=== PATIENT | female | born 1965 | race Hispanic/Latino ===

== ENCOUNTER 2020-11-08 09:00 | Inpatient (IN) | payer BC ==
[~2020-11-08] VITALS: Ht 160 cm; Wt 71.6 kg
[2020-11-08 12:26] LABS: BASOPHILS % (AUTO) 0.9 % (0.0-5.0); EOSINOPHILS % (AUTO) 2.8 % (0.0-8.0); HEMATOCRIT 42.3 % (36-48); LYMPHOCYTES % (AUTO) 40.4 % (21.0-51.0); MEAN CORPUSCULAR HEMOGLOBIN 31.8 pg (27.0-33.0); MEAN CORPUSCULAR HGB CONC 33.3 g/dL (32.0-36.0); MEAN CORPUSCULAR VOLUME 95.3 fL (79-99); MONOCYTES % (AUTO) 7.1 % (3.0-13.0); NEUTROPHILS % (AUTO) 48.4 % (40.0-77.0); PLATELET COUNT (AUTO) 269 K/uL (130-400); RED BLOOD CELL COUNT(AUTO) 4.44 MIL/uL (4.00-5.50); WHITE BLOOD COUNT (AUTO) 5.7 K/uL (4.8-10.8)
[2020-11-08 12:37] LABS: APPEARANCE,URINE Clear (CLEAR); BILIRUBIN,URINE Negative (NEGATIVE); COLOR,URINE Yellow (YELLOW); GLUCOSE, URINE (UA) Negative (NEGATIVE); KETONES,URINE Negative (NEGATIVE); LEUKOCYTE ESTERASE ,URINE Negative (NEGATIVE); NITRATE,URINE Negative (NEGATIVE); OCCULT BLOOD,URINE Negative (NEGATIVE); PROTEIN,URINE Negative (NEGATIVE); UROBILINOGEN,URINE 0.2 mg/dL (0.2-1.0)
[2020-11-08 12:44] LABS: INR 0.92 (0.85-1.15); PROTHROMBIN TIME 9.9 SEC (9.6-11.6)
[2020-11-08 12:50] LABS: CREATININE 0.7 mg/dL (0.5-1.5); POTASSIUM 4.7 mmol/L (3.5-5.1)
[2020-11-12 11:10] VITALS: BP 140/76
[2020-11-12] MEDS ORDERED: IBUP-2071 PO (11:40)
[2020-11-12] MEDS ORDERED: SERT50TA PO (11:40)
[2020-11-12] MEDS ORDERED: LORA10TA7 PO (11:40)
[2020-11-15] VITALS (25 sets, daily range): BP systolic 86–147; BP diastolic 50–85
[2020-11-15] MEDS: CEFAZOLIN SODIUM 1 GM VIAL IVP SCH ×3 (06:00→20:36)
[2020-11-15] MEDS ORDERED: LACTATED RINGERS 1000ML 1,000 ML IV ONE (08:00)
[2020-11-15] MEDS ORDERED: ACETAMINOPHEN EXTRA STRENGTH 500 MG TABLET ONE (09:13)
[2020-11-15] MEDS ORDERED: CELECOXIB 200 MG CAP ONE (09:13)
[2020-11-15] MEDS ORDERED: KETOROLAC TROMETHAMINE 15MG/ML ONE (09:13)
[2020-11-15] MEDS ORDERED: CEFAZOLIN SODIUM 1 GM VIAL ONE (09:49)
[2020-11-15] MEDS ORDERED: PROPOFOL 10 MG/ML 20ML VIAL IV ONE (09:55)
[2020-11-15] MEDS ORDERED: LIDOCAINE PF 2% 5ML ABBOJECT ONE (09:55)
[2020-11-15] MEDS ORDERED: MIDAZOLAM HCL 1 MG/ML 2ML VIAL ONE (09:55)
[2020-11-15] MEDS ORDERED: FENTANYL CITRATE PF 50 MCG/1 ML 2ML VIAL ONE ×2 (09:55→11:19)
[2020-11-15] MEDS ORDERED: ONDANSETRON HCL 4 MG/2 ML VIAL ONE ×2 (09:55→13:55)
[2020-11-15] MEDS ORDERED: DEXAMETHASONE SOD PHOSPHATE 10MG/ML 1ML VIAL ONE (09:55)
[2020-11-15] MEDS ORDERED: ROCURONIUM 10MG/1ML SYR 10 MG/ML ML ONE ×2 (09:56→10:55)
[2020-11-15] MEDS ORDERED: TRANEXAMIC ACID 1000MG/10ML ONE ×2 (09:56→13:08)
[2020-11-15] MEDS ORDERED: ROPIVACAINE 0.5% 5MG/ML 30ML IJ ONE (09:59)
[2020-11-15] MEDS ORDERED: EPHEDRINE SULFATE 50 MG/ML AMPULE ONE (10:32)
[2020-11-15] MEDS ORDERED: FERROUS FUMARATE 324 MG TABLET PO PRN (12:45)
[2020-11-15] MEDS ORDERED: ONDANSETRON HCL 4 MG/2 ML VIAL IVP PRN (12:45)
[2020-11-15] MEDS ORDERED: POTASSIUM CHLORIDE 10% ELIXIR 20 MEQ/15 ML UDCUP PO PRN (12:45)
[2020-11-15] MEDS ORDERED: OXYCODONE HCL 5 MG TAB PO PRN (12:45)
[2020-11-15] MEDS ORDERED: TEMAZEPAM 15 MG CAPSULE PO PRN (12:45)
[2020-11-15] MEDS ORDERED: POTASSIUM CHLORIDE 20MEQ/100ML 100 ML IV PRN (12:45)
[2020-11-15] MEDS ORDERED: ACETAMINOPHEN EXTRA STRENGTH 500 MG TABLET PO SCH (12:45)
[2020-11-15] MEDS ORDERED: TRAMADOL HCL 50 MG TABLET PO PRN (12:45)
[2020-11-15] MEDS: SODIUM CHLORIDE 0.9% 1000ML 1,000 ML IV SCH ×2 (12:45→23:03)
[2020-11-15] MEDS ORDERED: CALCIUM CARBONATE 500 MG TABLET PO PRN (12:45)
[2020-11-15] MEDS ORDERED: POTASSIUM CHLORIDE 20 MEQ ERTAB PO PRN (12:45)
[2020-11-15] MEDS ORDERED: DiphenhydrAMINE HCL 50 MG/ML VIAL IVP PRN (12:45)
[2020-11-15] MEDS ORDERED: LIDOCAINE HCL-MPF 1% 2ML VIAL IV PRN (12:45)
[2020-11-15] MEDS ORDERED: MEPERIDINE-PF 25 MG/ML SYG ONE ×2 (13:27→13:36)
[2020-11-15] MEDS: OXYCODONE HCL 5 MG TAB PO PRN ×2 (17:27→23:03)
[2020-11-15] MEDS ORDERED: CEFAZOLIN SODIUM 1 GM VIAL IVP SCH (17:45)
[2020-11-15] MEDS: FAMOTIDINE 20MG TAB 20 MG TAB PO SCH (20:36)
[2020-11-15] MEDS: PREGABALIN 25 MG CAP PO SCH (20:36)
[2020-11-15] MEDS: ASPIRIN 81MG TAB.CHEW PO SCH (20:36)
[2020-11-15] MEDS: CELECOXIB 200 MG CAP PO SCH (20:37)
[2020-11-15] MEDS: KETOROLAC TROMETHAMINE 15MG/ML IV PRN (21:34)
[2020-11-15] MEDS: ACETAMINOPHEN EXTRA STRENGTH 500 MG TABLET PO SCH (22:29)
[2020-11-15] MEDS: HYDROMORPHONE HCL 2 MG/ML VIAL IVP PRN ×2 (22:30→23:47)
[2020-11-16] MEDS: HYDROMORPHONE HCL 2 MG/ML VIAL IVP PRN ×4 (00:48→04:56)
[2020-11-16] MEDS ORDERED: NALOXONE HCL 0.4 MG/1 ML ML IVP PRN (01:45)
[2020-11-16] MEDS ORDERED: HYDROMORPHONE PCA 10 MG/50 ML 50 ML IV PRN (01:45)
[2020-11-16] MEDS: CEFAZOLIN SODIUM 1 GM VIAL IVP SCH (03:30)
[2020-11-16 04:03] VITALS: BP 116/68
[2020-11-16 05:11] LABS: MEAN CORPUSCULAR HEMOGLOBIN 32.2 pg (27.0-33.0); MEAN CORPUSCULAR HGB CONC 33.1 g/dL (32.0-36.0); MEAN CORPUSCULAR VOLUME 97.3 fL (79-99); RED BLOOD CELL COUNT(AUTO) 3.29 MIL/uL (4.00-5.50); RED CELL DISTRIBUTION WIDTH 12.2 % (11.0-15.5); WHITE BLOOD COUNT (AUTO) 10.2 K/uL (4.8-10.8)
[2020-11-16] MEDS: ACETAMINOPHEN EXTRA STRENGTH 500 MG TABLET PO SCH ×3 (05:38→19:38)
[2020-11-16 05:44] LABS: CREATININE 0.7 mg/dL (0.5-1.5); POTASSIUM 3.9 mmol/L (3.5-5.1)
[2020-11-16] MEDS: SODIUM CHLORIDE 0.9% 1000ML 1,000 ML IV SCH (08:09)
[2020-11-16] MEDS: PREGABALIN 25 MG CAP PO SCH ×2 (08:14→19:38)
[2020-11-16] MEDS: FAMOTIDINE 20MG TAB 20 MG TAB PO SCH ×2 (08:14→19:38)
[2020-11-16] MEDS: CELECOXIB 200 MG CAP PO SCH ×2 (08:14→19:38)
[2020-11-16] MEDS: ASPIRIN 81MG TAB.CHEW PO SCH ×2 (08:14→19:38)
[2020-11-16] MEDS: SERTRALINE HCL 50 MG TABLET PO SCH (08:14)
[2020-11-16] MEDS: POLYETHYLENE GLYCOL 3350 17 GM POWD.PACK PO SCH (08:15)
[2020-11-16] MEDS: OXYCODONE HCL 5 MG TAB PO PRN ×4 (08:15→21:49)
[2020-11-16 08:19] VITALS: BP 116/58
[2020-11-16] MEDS ORDERED: LORATADINE 10 MG TABLET PO PRN (09:00)
[2020-11-16 11:36] VITALS: BP 107/65
[2020-11-16] MEDS: KETOROLAC TROMETHAMINE 15MG/ML IV PRN (13:30)
[2020-11-16 16:23] VITALS: BP 113/58
[2020-11-16 19:55] VITALS: BP 103/52
[2020-11-16] MEDS: HYDROMORPHONE 1 MG/1 ML AMP IVP PRN ×4 (20:08→23:33)
[2020-11-16 23:15] VITALS: BP 110/55
[2020-11-17] MEDS: HYDROMORPHONE 1 MG/1 ML AMP IVP PRN ×5 (01:42→05:57)
[2020-11-17] MEDS: OXYCODONE HCL 5 MG TAB PO PRN ×4 (02:06→15:25)
[2020-11-17 04:28] VITALS: BP 106/55
[2020-11-17] MEDS: ACETAMINOPHEN EXTRA STRENGTH 500 MG TABLET PO SCH ×2 (04:54→15:27)
[2020-11-17 09:07] VITALS: BP 116/69
[2020-11-17] MEDS: POLYETHYLENE GLYCOL 3350 17 GM POWD.PACK PO SCH (09:27)
[2020-11-17] MEDS: ASPIRIN 81MG TAB.CHEW PO SCH (09:28)
[2020-11-17] MEDS: SERTRALINE HCL 50 MG TABLET PO SCH (09:28)
[2020-11-17] MEDS: PREGABALIN 25 MG CAP PO SCH (09:28)
[2020-11-17] MEDS: CELECOXIB 200 MG CAP PO SCH (09:28)
[2020-11-17] MEDS: FAMOTIDINE 20MG TAB 20 MG TAB PO SCH (09:28)
[2020-11-17] MEDS ORDERED: BISACODYL 10 MG SUPP.RECT RC PRN (09:30)
[2020-11-17 11:19] VITALS: BP 140/66
[2020-11-17] MEDS ORDERED: HYDR-4457 PO (14:45)
[2020-11-17] MEDS ORDERED: ASPI-1005 PO (14:45)
[2020-11-17 16:15] VITALS: BP 133/67
[2020-11-18] MEDS ORDERED: BISACODYL 10 MG SUPP.RECT RC PRN (12:45)
== END 2020-11-17 18:45 | DRG 470 ==
LOC: EDSTATUS 09:00 → DAHIP 11-15 07:10 → 3AH 11-15 14:10
PROVIDERS: ADMIT Orthopaedic Surgery; ATTEND Orthopaedic Surgery
PROC: 0SRC0J9 Replacement of Right Knee Joint with Synthetic Substitute, Cemented, Open Approach (ICD-10-PCS; principal; 2020-11-15 10:00)
DX: M17.11 Unilateral primary osteoarthritis, right knee (principal); Z20.828 Contact with and (suspected) exposure to other viral communicable diseases; G89.29 Other chronic pain; M23.8X1 Other internal derangements of right knee; Z90.710 Acquired absence of both cervix and uterus
CPT/HCPCS: 36415; 80048; 81003; 85025; 85027; 85610; 87641; 97039; G0378; J0690; J1100; J1170; J1885; J2001; J2175; J2250; J2405; J2704; J2795; J3010; J3490; J7120; U0003

== ENCOUNTER → 2023-03-06 | Outpatient (CLI) | payer BC ==
[~2023-03-06] MED LIST: ASPI-1005 PO; HYDR-4457 PO; LORA10TA7 PO; SERT50TA PO
== END | disposition home or self-care (01) ==
LOC: SHCH 14:06
PROVIDERS: ATTEND Internal Medicine Cardiovascular Disease
DX: I87.2 Venous insufficiency (chronic) (peripheral) (principal)
CPT/HCPCS: 87071; 87076; 87205; 89051; 89060; 93970

== ENCOUNTER → 2023-04-12 | Outpatient (CLI) | payer BC ==
[2023-04-12 20:14] LABS: APPEARANCE BODY FLUID CLOUDY (CLEAR); COLOR,BODY FLUID ORANGE (LT YELLOW); SPECIMENTYPE,BODY FLUID SYNOVIAL
[2023-04-12 20:15] LABS: BODY FLUID RBC 4305 /cu. mm.; BODY FLUID WBC 78 /cu. mm.; TOTAL VOLUME,BODY FLUID 30 mL
[2023-04-12 20:21] LABS: BF LYMPHOCYTE 4 %; BF MONOCYTE 1 %
[2023-04-13 02:56] LABS: CRYSTALS, SYNOVIAL FLUID None Seen
== END | disposition home or self-care (01) ==
LOC: SHCH 10:00
PROVIDERS: ATTEND Internal Medicine Cardiovascular Disease
DX: M25.461 Effusion, right knee (principal)
CPT/HCPCS: 87071; 87076; 87205; 89051; 89060

== ENCOUNTER → 2023-09-10 | Outpatient (CLI) | payer BC | END | disposition home or self-care (01) | LOC: SHCH 09:27 | PROVIDERS: ATTEND Internal Medicine Cardiovascular Disease | DX: Z09 Encounter for follow-up examination after completed treatment for conditions other than malignant neoplasm (principal); I87.2 Venous insufficiency (chronic) (peripheral) | CPT/HCPCS: 93971 ==

== ENCOUNTER 2023-09-17 05:45 | Day surgery (SDC) | payer BC ==
[2023-09-13 10:24] LABS: BASOPHILS # (AUTO) 0.03 K/uL (0.00-0.20); BASOPHILS % (AUTO) 0.5 % (0.0-5.0); EOSINOPHILS # (AUTO) 0.23 K/uL (0.00-0.70); EOSINOPHILS % (AUTO) 4.1 % (0.0-8.0); HEMATOCRIT 40.7 % (36-48); IMMATURE GRANULOCYTE ABSOLUTE 0.02 K/uL (0-1); LYMPHOCYTES # (AUTO) 1.3 K/uL (1.0-4.8); LYMPHOCYTES % (AUTO) 22.9 % (21.0-51.0); MEAN CORPUSCULAR HEMOGLOBIN 32.7 pg (27.0-33.0); MEAN CORPUSCULAR HGB CONC 33.7 g/dL (32.0-36.0); MEAN CORPUSCULAR VOLUME 97.1 fL (79-99); MONOCYTES # (AUTO) 0.5 K/uL (0.1-1.0); MONOCYTES % (AUTO) 9.7 % (3.0-13.0); NEUTROPHILS # (AUTO) 3.5 K/uL (1.8-7.7); NEUTROPHILS % (AUTO) 62.4 % (40.0-77.0); PLATELET COUNT (AUTO) 214 K/uL (130-400); RED BLOOD CELL COUNT(AUTO) 4.19 MIL/uL (4.00-5.50); RED CELL DISTRIBUTION WIDTH 12.3 % (11.0-15.5); WHITE BLOOD COUNT (AUTO) 5.6 K/uL (4.8-10.8)
[2023-09-13 10:25] VITALS: BP 160/83; PULSE 69; RESP 18
[2023-09-13 10:32] LABS: CREATININE 0.8 mg/dL (0.5-1.5); POTASSIUM 4.7 mmol/L (3.5-5.1)
[2023-09-13 10:34] LABS: INR < 0.93 (0.85-1.15); PROTHROMBIN TIME 10.8 SEC (9.6-11.6)
[2023-09-13 10:35] LABS: PARTIAL THROMBOPLASTIN TIME 27.4 SEC (26.3-35.5)
[2023-09-17] VITALS (8 sets, daily range): BP systolic 130–155; BP diastolic 70–86; PULSE 70–85; RESP 12–16
[~2023-09-17] VITALS: Ht 157.5 cm; Wt 77.7 kg
[~2023-09-17 05:45] MED LIST changes: -ASPI-1005 PO; -HYDR-4457 PO; +IBUP-2077 PO; +LINA290C PO; -LORA10TA7 PO; +MELO-108 PO; -SERT50TA PO; +[UNRECOGNIZED DRUG - OTHER] PO; +[UNRECOGNIZED DRUG - OTHER] PO
[2023-09-17] MEDS ORDERED: 0.9%NACL 1000ML 1,000 ML IV ONE (06:25)
[2023-09-17] MEDS ORDERED: IODIXANOL 320 MG/ML 100 ML VIAL ONE (07:09)
[2023-09-17] MEDS ORDERED: HEPARIN 10,000 UNIT/10ML (1,000 UNIT/ML) VIAL ONE (07:09)
[2023-09-17] MEDS ORDERED: MIDAZOLAM HCL 1 MG/ML 2ML VIAL ONE ×3 (07:09→07:45)
[2023-09-17] MEDS ORDERED: LIDOCAINE HCL 400MG/20ML VIAL ONE (07:09)
[2023-09-17] MEDS ORDERED: FENTANYL CITRATE PF 50 MCG/1 ML 2ML VIAL ONE ×2 (07:09→07:45)
[2023-09-17] MEDS ORDERED: CLOPIDOGREL 300MG TAB ONE (08:24)
[2023-09-17] MEDS ORDERED: ASPIRIN 81MG CHEW TAB ONE (08:24)
[2023-09-17] MEDS ORDERED: GLUCAGON 1MG KIT 1 MG ML IM PRN (08:30)
[2023-09-17] MEDS ORDERED: DEXTROSE 50%-WATER 50 ML DISP.SYRIN IV PRN (08:30)
[2023-09-17] MEDS ORDERED: ACETAMINOPHEN WITH CODEINE 1 TAB TAB PO PRN ×2 (08:30)
[2023-09-17] MEDS ORDERED: 0.9%NACL 1000ML 1,000 ML IV SCH (08:30)
== END 2023-09-17 12:20 | disposition home or self-care (01) ==
LOC: DAH 05:45
PROVIDERS: ATTEND Internal Medicine Cardiovascular Disease
DX: I87.1 Compression of vein (principal); I87.2 Venous insufficiency (chronic) (peripheral); K21.9 Gastro-esophageal reflux disease without esophagitis; Z79.899 Other long term (current) drug therapy; Z90.710 Acquired absence of both cervix and uterus; Z79.01 Long term (current) use of anticoagulants
CPT/HCPCS: 80048; 85025; 85610; 85730; 36415; 37238; 37239; 36012; 37252; 37253 ×5; 75822; C1876 ×2; C1769 ×2; C1894 ×3; C1725; C1753; J3010 ×2; J3490; J7030; J1644 ×2; J2250 ×3; Q9967; A4215; A4222; A4221; A4663; A4216; A4606; A4223 ×3; 96360; 96361; 99156; 99157